=== PATIENT | male | born 2000 | race Two or more races ===

== ENCOUNTER 2022-04-22 12:44 | Emergency (ER) | payer BC, OTHER ==
[~2022-04-22] VITALS: Ht 170.2 cm; Wt 109.0 kg
[2022-04-22 13:25] LABS: Basophils # (auto) 0.1 10 ^3/uL (0-0.2); Basophils % (auto) 0.9 % (0.0-2.0); Eosinophils # (auto) 0.1 10 ^3/uL (0-0.8); Eosinophils % (auto) 1.9 % (0.0-7.0); Hematocrit 44.8 % (41.0-53.0); Hemoglobin 15.9 g/dL (13.5-17.5); Lymphocytes # (auto) 1.8 10 ^3/uL (0.4-5.4); Lymphocytes % (auto) 27.2 % (10.0-50.0); Mean Corpuscular Hemoglobin 29.6 pg (28.0-32.0); Mean Corpuscular Hgb Conc. 35.5 g/dL (32.0-36.0); Mean Corpuscular Volume 83.4 fL (80.0-100.0); Monocytes # (auto) 0.9 10 ^3/uL (0-1.3); Neutrophils # (auto) 3.8 10 ^3/uL (1.6-8.6); Red Blood Cells 5.37 10^6/uL (4.5-5.90); Red Cell Distribution Width 13.3 % (11.8-14.3); White Blood Cell 6.7 10^3/uL (4.4-10.8)
[2022-04-22 13:41] LABS: INR 0.97 (0.9-1.15); Partial Thromboplastin Time 27.9 sec (24.6-33.4)
[2022-04-22] MEDS ORDERED: ASPirin 325 MG TAB PO ONE (13:45)
[2022-04-22 13:51] LABS: Albumin 3.9 g/dL (3.4-5.0); BUN/Creatinine Ratio 18.2; Calcium 8.7 mg/dL (8.5-10.1); Magnesium 2.2 mg/dL (1.6-2.6); Potassium 4.2 mmol/L (3.5-5.1)
[2022-04-22 13:54] LABS: Bilirubin, Total 0.7 mg/dL (0.2-1.0); Total Protein 7.5 g/dL (6.4-8.2)
[2022-04-22 14:16] LABS: Nucleated Red Blood Cells % 3.2 %
[2022-04-22 16:42] VITALS: BP 122/62
== END 2022-04-22 16:42 | disposition home or self-care (01) ==
LOC: ER 12:44
DX: R07.89 Other chest pain (principal); R55 Syncope and collapse; F17.210 Nicotine dependence, cigarettes, uncomplicated
CPT/HCPCS: 36415; 71046; 80053; 83735; 84484; 85025; 85379; 85610; 85730; 93005

== ENCOUNTER 2022-05-16 18:20 | Emergency (ER) | payer BC ==
[~2022-05-16] VITALS: Ht 170.2 cm; Wt 102.7 kg
[2022-05-16] MEDS ORDERED: KETOROLAC TROMETH 60MG/2ML VIAL IM ONE (21:45)
[2022-05-16] MEDS ORDERED: HYDR-4798 PO (21:57)
[2022-05-16 22:56] VITALS: BP 109/71
== END 2022-05-16 23:04 | disposition home or self-care (01) ==
LOC: ER 18:20
DX: M54.59 Other low back pain (principal); F17.210 Nicotine dependence, cigarettes, uncomplicated; F12.90 Cannabis use, unspecified, uncomplicated
CPT/HCPCS: 72110; 96372; 99283; J1885

== ENCOUNTER 2022-07-06 01:18 | Inpatient (IN) | payer BC ==
[~2022-07-06] VITALS: Ht 170.2 cm; Wt 108.6 kg
[~2022-07-06 01:18] MED LIST: HYDR-4798 PO
[2022-07-06] MEDS ORDERED: ONDANSETRON HCL 4 MG/2 ML VIAL IM ONE (01:30)
[2022-07-06] MEDS ORDERED: NALOXONE HCL 0.4 MG/ML VIAL IV ONE (02:00)
[2022-07-06] MEDS ORDERED: SODIUM CHLORIDE 0.9% 1,000 ML IV ONE (02:00)
[2022-07-06 02:19] LABS: Basophils # (auto) 0 10 ^3/uL (0-0.2); Basophils % (auto) 0.3 % (0.0-2.0); Eosinophils # (auto) 0 10 ^3/uL (0-0.8); Eosinophils % (auto) 0.1 % (0.0-7.0); Hematocrit 44.7 % (41.0-53.0); Hemoglobin 15.2 g/dL (13.5-17.5); Lymphocytes # (auto) 1.4 10 ^3/uL (0.4-5.4); Lymphocytes % (auto) 9.8 % (10.0-50.0); Mean Corpuscular Hemoglobin 28.9 pg (28.0-32.0); Mean Corpuscular Hgb Conc. 34.1 g/dL (32.0-36.0); Mean Corpuscular Volume 84.8 fL (80.0-100.0); Monocytes # (auto) 1.1 10 ^3/uL (0-1.3); Monocytes % (auto) 7.6 % (0.0-12.0); Neutrophils # (auto) 11.7 10 ^3/uL (1.6-8.6); Neutrophils % (auto) 82.2 % (37.0-80.0); Nucleated Red Blood Cells % 0.1 %; Red Blood Cells 5.27 10^6/uL (4.5-5.90); Red Cell Distribution Width 13.5 % (11.8-14.3); White Blood Cell 14.3 10^3/uL (4.4-10.8)
[2022-07-06 03:27] LABS: Albumin 4.2 g/dL (3.4-5.0); BUN/Creatinine Ratio 11.7 (10.0-20.0); Calcium 9.4 mg/dL (8.5-10.1); Magnesium 1.7 mg/dL (1.6-2.6); Potassium 3.7 mmol/L (3.5-5.1)
[2022-07-06 03:30] LABS: Bilirubin, Total 1.1 mg/dL (0.2-1.0); Total Protein 8.1 g/dL (6.4-8.2)
[2022-07-06 04:08] LABS: Urine Bacteria NONE SEEN /hpf (None Seen); Urine Blood Negative /uL (Negative); Urine WBC 1 /hpf (0 - 3)
[2022-07-06] MEDS ORDERED: SODIUM CHLORIDE 0.9% 2,000 ML IV ONE (04:15)
[2022-07-06] MEDS ORDERED: CEFTRIAXONE SODIUM 2 GM in D5W 5% 100 ML IV ONE (04:15)
[2022-07-06 04:24] LABS: Alcohol, Urine < 3.0 mg/dL (0-10); Amphetamine Screen, Urine NEGATIVE (NEGATIVE); Barbiturate Scree,Urine NEGATIVE (NEGATIVE); Benzodiazephine Screen, Urine NEGATIVE (NEGATIVE); Cannabinoid Screen, Urine NEGATIVE (NEGATIVE); Cocaine Screen, Urine NEGATIVE (NEGATIVE); Opiate Scree,Urine NEGATIVE (NEGATIVE); Phencyclidine Screen, Urine NEGATIVE (NEGATIVE)
[2022-07-06 05:18] LABS: INR 1.05 (0.9-1.15); Partial Thromboplastin Time 27.3 sec (24.6-33.4)
[2022-07-06] MEDS ORDERED: cefTRIAXone 1GM/50ML D5W 0 ML IV ONE ×2 (06:40→06:42)
[2022-07-06] MEDS ORDERED: MORPHINE SULFATE INJ 2 MG/ml SYRG IV PRN ×2 (09:45)
[2022-07-06] MEDS ORDERED: NITROGLYCERIN 0.4 MG SL TAB SL PRN (09:45)
[2022-07-06] MEDS ORDERED: ONDANSETRON HCL 4 MG/2 ML VIAL IV PRN (09:45)
[2022-07-06] MEDS: SODIUM CHLORIDE 0.9% 1,000 ML IV SCH ×2 (09:55→16:33)
[2022-07-06 10:15] LABS: Cholesterol 160 mg/dL (< 200)
[2022-07-06 10:18] LABS: HDL Cholesterol 51 mg/dL (40-59); LDL Cholesterol 100 mg/dL (< 100); Triglycerides 48 mg/dL (< 150)
[2022-07-06] MEDS ORDERED: PANTOPRAZOLE 40 MG/10 ML VIAL INJ IV ONE (12:15)
[2022-07-06] MEDS: metroNIDAZOLE 500MG/100ML 100 ML IV SCH ×3 (12:24→22:49)
[2022-07-06] MEDS ORDERED: ACETAMINOPHEN 325 MG TAB PO ONE (13:15)
[2022-07-06] MEDS: ACETAMINOPHEN 325 MG TAB PO PRN (22:49)
[2022-07-07] MEDS: metroNIDAZOLE 500MG/100ML 100 ML IV SCH ×3 (05:45→21:41)
[2022-07-07 06:12] LABS: Basophils # (auto) 0.1 10 ^3/uL (0-0.2); Basophils % (auto) 0.8 % (0.0-2.0); Eosinophils # (auto) 0.2 10 ^3/uL (0-0.8); Eosinophils % (auto) 2.2 % (0.0-7.0); Hematocrit 42.2 % (41.0-53.0); Hemoglobin 14.3 g/dL (13.5-17.5); Lymphocytes # (auto) 2.6 10 ^3/uL (0.4-5.4); Lymphocytes % (auto) 36.9 % (10.0-50.0); Mean Corpuscular Hemoglobin 29.4 pg (28.0-32.0); Mean Corpuscular Hgb Conc. 33.9 g/dL (32.0-36.0); Mean Corpuscular Volume 86.8 fL (80.0-100.0); Monocytes % (auto) 13.8 % (0.0-12.0); Neutrophils # (auto) 3.3 10 ^3/uL (1.6-8.6); Neutrophils % (auto) 46.3 % (37.0-80.0); Nucleated Red Blood Cells % 0.1 %; Red Blood Cells 4.87 10^6/uL (4.5-5.90); Red Cell Distribution Width 13.6 % (11.8-14.3); White Blood Cell 7.2 10^3/uL (4.4-10.8)
[2022-07-07 06:24] LABS: Albumin 3.5 g/dL (3.4-5.0); Calcium 7.7 mg/dL (8.5-10.1); Potassium 3.9 mmol/L (3.5-5.1)
[2022-07-07 06:28] LABS: BUN/Creatinine Ratio 11.1 (10.0-20.0); Bilirubin, Total 0.7 mg/dL (0.2-1.0); Total Protein 6.6 g/dL (6.4-8.2)
[2022-07-07] MEDS: cefTRIAXone 1GM/50ML D5W 50 ML IV SCH (09:29)
[2022-07-07] MEDS: SODIUM CHLORIDE 0.9% 1,000 ML IV SCH ×3 (09:37→18:37)
[2022-07-07] MEDS: PANTOPRAZOLE 40 MG/10 ML VIAL INJ IV SCH (09:44)
[2022-07-07 11:47] LABS: Hepatitis B Surface Antibody Negative (Negative)
[2022-07-07 12:24] LABS: Hepatitis A Total Antibody Positive (Negative)
[2022-07-07] MEDS: ACETAMINOPHEN 325 MG TAB PO PRN ×2 (12:37→20:31)
[2022-07-07 14:23] LABS: Hepatitis C Antibody Negative (Negative)
[2022-07-07 17:03] VITALS: BP 113/64
[2022-07-07 22:00] VITALS: BP 118/73
[2022-07-08] MEDS: SODIUM CHLORIDE 0.9% 1,000 ML IV SCH ×2 (03:28→08:25)
[2022-07-08 05:00] VITALS: BP 93/50
[2022-07-08 05:50] VITALS: BP 114/69
[2022-07-08] MEDS: metroNIDAZOLE 500MG/100ML 100 ML IV SCH (05:51)
[2022-07-08 08:30] VITALS: BP 124/76
[2022-07-08 09:05] VITALS: BP 124/76
[2022-07-08] MEDS: PANTOPRAZOLE 40 MG/10 ML VIAL INJ IV SCH (09:32)
[2022-07-08] MEDS: cefTRIAXone 1GM/50ML D5W 50 ML IV SCH (09:33)
[2022-07-08 13:02] VITALS: BP 115/64
[2022-07-08 13:04] VITALS: BP 115/64
== END 2022-07-08 14:05 | disposition home or self-care (01) | DRG 682 ==
LOC: ER 01:18 → TELE 09:40 → TELE-WESTW 07-07 16:35
PROVIDERS: ADMIT Registered Nurse; ATTEND Internal Medicine
DX: N17.0 Acute kidney failure with tubular necrosis (principal); G93.41 Metabolic encephalopathy; T67.5XXA Heat exhaustion, unspecified, initial encounter; Z20.822 Contact with and (suspected) exposure to COVID-19; E66.01 Morbid (severe) obesity due to excess calories; E86.0 Dehydration; F17.210 Nicotine dependence, cigarettes, uncomplicated; K74.60 Unspecified cirrhosis of liver; K76.0 Fatty (change of) liver, not elsewhere classified; Z68.37 Body mass index [BMI] 37.0-37.9, adult; X30.XXXA Exposure to excessive natural heat, initial encounter
CPT/HCPCS: 36415; 70450; 71045; 74176; 76705; 80053; 80061; 80307; 80320; 80329; 81001; 82010; 82140; 82550; 82553; 82977; 83036; 83605; 83690; 83735; 83880; 84443; 85025; 85379; 85610; 85730; 86704; 86706; 86708; 86803; 87040; 87086; 87340; 87426; 93005; 96361; 96372; 96374; C9113; G0378; J0696; J2405; J3490; J7060